=== PATIENT | male | born 1975 | race Caucasian/White ===

== ENCOUNTER 2016-09-09 16:34 | Emergency (ER) | payer MEDICARE, OTHER ==
--- NOTE | ~2016-09-09 | CT71 ---
[facility] A Service of [facility] RADIOLOGY TEXT RESULTS PATIENT: RHONDA LAZCANO LOCATION: [facility] : 79 UNIT #: [id number] AGE: [address]: Shane Saravia MD SEX: M ORDER DR: [id number] [facility] [address] [place], [place] [address] [id number] MR#: [id number] #: [id number] NAME: RHONDA LAZCANO. : 1975 SEX: M STUDY DATE/TIME: 09/09/2016 16:00 UNIT: [facility] ROOM: STUDY DESCRIPTION: CT Head Wo Contrast Attending Physician: Shane Saravia M.D. Ordering Physician: Shane Saravia M.D. Primary Care Physician: Zan Morataya M.D. MEDICAL IMAGING REPORT This report is preliminary unless electronic signature is present EXAM Head CT without, 09/09/2016 HISTORY Possible seizure today, hit left top side of head with pain. TECHNIQUE This CT exam was performed with one or more of the following radiation dose reduction techniques: automatic exposure control, adjustment of mA and/or kV according to patient size, and iterative reconstruction. COMMENT Routine noncontrast head CT is reviewed. Comparison is from 10/11/2014. There is no displaced calvarial fracture. The patient has a mucous retention cyst or polyp in the left sphenoid sinus. There is no air-fluid level and the visualized paranasal sinuses and the visualized mastoid air cells are clear. There is no evidence for acute intracranial hemorrhage or extraaxial fluid collection. The ventricles are normal in size and configuration. There is likely some mild cerebellar tonsillar ectopia. The dee-white junction is well-maintained. No intracranial mass effect. The basilar cisterns are patent. IMPRESSION 1. Essentially normal noncontrast head CT. 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 2. Mucous retention cyst or polyp left sphenoid sinus. Dictated by... [facility] A Service [facility] RADIOLOGY TEXT RESULTS PATIENT: RHONDA LAZCANO LOCATION: [facility] : 79 UNIT #: [id number] AGE: [address]: Shane Saravia MD SEX: M ORDER DR: Leydi Tolentino M.D. THIS IS AN ELECTRONICALLY VERIFIED REPORT Leydi Tolentino M.D. at 09/09/2016 11:12 PM WHITNEY/tino TD: 09/09/2016 21:31 JOB #: [id number] MEDICAL IMAGING REPORT Page 1 of 1 COPY
[2016-09-09 16:08] LABS: BASOPHIL# 0.1 X10e3 (0-0.3); EOSINOPHIL# 0.4 X10e3 (0-0.7); EOSINOPHIL% 5.9 % (0.0-7.0); HEMATOCRIT 39.6 % (38.0-50.0); HEMOGLOBIN 12.8 gm/dL (13.0-16.0); LYMPHOCYTE# 1.5 X10e3 (1.0-3.5); LYMPHOCYTE% 22.6 % (17.0-45.0); MEAN CELL VOLUME 85.3 FL (83-96); MEAN CORPUSCULAR HEMOGLOBIN 27.7 PG (28-34); MEAN CORPUSCULAR HGB CONC 32.4 g/dL (30-36); MEAN PLATELET VOLUME 7.8 FL (6.5-11.5); MONOCYTE# 0.6 X10e3 (0-1.0); MONOCYTE% 8.7 % (3.0-12.0); NEUTROPHIL# 4.2 X10e3 (1.5-7.1); NEUTROPHIL% 61.8 % (40-75); PLATELET COUNT 374 X10e3 (140-420); RED BLOOD COUNT 4.64 X10e (3.90-5.60); RED CELL DISTRIBUTION WIDTH 14.9 % (11.0-15.5); WHITE BLOOD COUNT 6.8 X10e3 (4.0-10.5)
[2016-09-09 16:09] LABS: DIFF IND NO
[2016-09-09 16:30] LABS: AMPHETAMINE NEG (NEG); BARBITURATES NEG (NEG); BENZODIAZEPINES NEG (NEG); COCAINE NEG (NEG); MARIJUANA NEG (NEG); OPIATES POS (NEG); TRICYCLIC ANTIDEPRESSANTS NEG (NEG); U METHADONE NEG (NEG)
[~2016-09-09 16:34] MED LIST: ALPRAZOLAM PO; AMLODIPINE BESY10 MG PO; HYDROCHLOROTHIA25 MG PO; LEXAPRO20 MG PO; LIPITOR20 MG PO; LISINOPRIL PO; METHADONE PO; NEURONTIN PO; PRILOSEC PO; REMERON PO; SEROQUEL XR300 M1 PO; SEROQUEL50 M1 PO
[2016-09-09 16:43] LABS: ALBUMIN SERUM 3.9 g/dL (3.5-5.0); ALKALINE PHOSPHATASE 47 U/L (32-92); ALT (SGPT) 16 U/L (10-40); AST (SGOT) 22 U/L (10-42); BILIRUBIN,TOTAL 0.3 mg/dL (0.2-2.0); BLOOD UREA NITROGEN 8 mg/dL (9-23); CARBON DIOXIDE 30 mmol/L (22-31); CHLORIDE 99 mmol/L (100-111); CREATININE SERUM 0.4 mg/dL (0.6-1.4); GLOM FILT RATE Estimated 149.7 mL/min (>60); GLUCOSE FASTING 98 mg/dL (70-110); POTASSIUM 3.2 mmol/L (3.5-5.1); PROTEIN TOTAL SERUM 7.7 g/dL (6.0-8.3); SODIUM 138 mmol/L (135-145)
[2016-09-09 16:48] LABS: ALCOHOL BLOOD <5 mg/dL (0)
== END 2016-09-09 17:55 | disposition home or self-care (01) ==
LOC: CED 16:34
PROVIDERS: Emergency Medicine
DX: G40.409 Other generalized epilepsy and epileptic syndromes, not intractable, without status epilepticus (principal); I10 Essential (primary) hypertension; Z23 Encounter for immunization; Z79.899 Other long term (current) drug therapy
CPT/HCPCS: 36415; 70450; 80053; 80307; 85025; 90471; 90715; 96361; 96374; 99284; G0480; J1953